=== PATIENT | female | born 1995 | race Caucasian/White ===

== ENCOUNTER 2017-11-11 13:08 | Emergency (ER) | payer BC ==
[~2017-11-11] VITALS: Ht 160 cm; Wt 74.8 kg
== END 2017-11-11 14:14 | disposition home or self-care (01) ==
LOC: ED 13:08
DX: H60.91 Unspecified otitis externa, right ear (principal)

== ENCOUNTER 2019-12-28 10:01 | Emergency (ER) | payer OTHER ==
[~2019-12-28] VITALS: Ht 160 cm; Wt 59.0 kg
[2019-12-28] MEDS ORDERED: Tobrex Ophth S2.5 ML OPH (11:40)
== END 2019-12-28 11:40 | disposition home or self-care (01) ==
LOC: ED 10:01
DX: H10.9 Unspecified conjunctivitis (principal)

== ENCOUNTER 2019-12-30 10:35 | Emergency (ER) | payer OTHER ==
[~2019-12-30] VITALS: Ht 160 cm; Wt 59.0 kg
[~2019-12-30 10:35] MED LIST: Tobrex Ophth S2.5 ML OPH
== END 2019-12-30 11:41 | disposition home or self-care (01) ==
LOC: ED 10:35
DX: H10.9 Unspecified conjunctivitis (principal); Z79.899 Other long term (current) drug therapy

== ENCOUNTER 2022-01-16 10:51 | Emergency (ER) | payer SELFPAY ==
[~2022-01-16] VITALS: Ht 160 cm; Wt 59.0 kg
[2022-01-16] MEDS ORDERED: AMOX-CLAV 875-1 EACH PO (11:11)
== END 2022-01-16 11:11 | disposition home or self-care (01) ==
LOC: ED 10:51
DX: H66.93 Otitis media, unspecified, bilateral (principal); J02.9 Acute pharyngitis, unspecified

== ENCOUNTER 2022-01-18 01:59 | Emergency (ER) | payer SELFPAY ==
[~2022-01-18] VITALS: Ht 160 cm; Wt 59.0 kg
[~2022-01-18 01:59] MED LIST changes: +AMOX-CLAV 875-1 EACH PO
== END 2022-01-18 02:31 | disposition home or self-care (01) ==
LOC: ED 01:59
DX: H60.503 Unspecified acute noninfective otitis externa, bilateral (principal)

== ENCOUNTER 2022-04-17 09:37 | Emergency (ER) | payer OTHER ==
[~2022-04-17] VITALS: Ht 160 cm; Wt 63.5 kg
[2022-04-17 10:40] LABS: BASO % 0.4 % (0.0-1.0); EOS # 0.1 10*3/uL (0.0-0.4); EOS % 1.1 % (1.0-4.0); HEMATOCRIT 35.8 % (37.0-47.0); LYMPH # 1.2 10*3/uL (1.3-4.4); LYMPH % 14.6 % (27.0-41.0); MEAN CELL VOLUME 86.1 fl (81.0-99.0); MEAN CORPUSCULAR HGB 29.6 pg (27.0-31.0); MEAN CORPUSCULAR HGB CONC 34.4 g/dl (33.0-37.0); MEAN PLATELET VOLUME 9.7 fl (9.6-12.3); MONO # 0.5 10*3/uL (0.1-1.0); MONO % 6.2 % (3.0-9.0); NEUT # 6.1 10*3/uL (2.3-7.9); NEUT % 77.4 % (47.0-73.0); PLATELET COUNT AUTOMATED 241 10*3/uL (130-400); RED BLOOD COUNT 4.16 10*6/uL (4.10-5.10); RED CELL DISTRI WIDTH 13.2 % (0-14.5); WHITE BLOOD COUNT 7.9 10*3/uL (4.8-10.8)
[2022-04-17 10:58] LABS: ALKALINE PHOSPHATASE 48 U/L (46-116); BUN 14 mg/dl (9-23); CHLORIDE 101 mmol/L (98-107); CREATININE 0.72 mg/dL (0.55-1.02); POTASSIUM 3.5 mmol/L (3.4-5.1); SGPT/ALT 14 U/L (10-49); SODIUM 132 mmol/L (136-145); TOTAL PROTEIN 7.1 gm/dL (6.0-8.0)
[2022-04-17 11:03] LABS: ETHYL ALCOHOL < 3.0 mg/dl (<3)
[2022-04-17 12:28] LABS: URINE AMPHETAMINES Negative (1000ng/ml); URINE BARBITURATES Negative (200ng/ml); URINE BENZODIAZEPINES Negative (200ng/ml); URINE CANNABINOIDS (THC) Negative (50ng/ml); URINE COCAINE Negative (300ng/ml); URINE METHADONE Negative (300ng/ml); URINE OPIATES Negative (300ng/ml); URINE PHENCYCLIDINE Negative (25ng/ml)
[2022-04-17 12:30] LABS: BILIRUBIN Negative (Negative); BLOOD Negative (Negative); CLARITY Clear (Clear); COLOR Yellow (Yellow); GLUCOSE Negative (Negative); KETONE Negative (Negative); LEUKO ESTERASE Negative (Negative); NITRITE Negative (Negative); PH 6.5 (4.5-8.0); SPECIFIC GRAVITY <= 1.005 (1.001-1.030); UROBILINOGEN 0.2 E.U./dl (0.0-1.0)
[2022-04-17 12:58] LABS: RBC 0-2 rbc/hpf (0-2); WBC 0-2 wbc/hpf (0-5)
== END 2022-04-17 13:56 | disposition home or self-care (01) ==
LOC: ED 09:37
PROVIDERS: Family Medicine
DX: R20.2 Paresthesia of skin (principal)

== ENCOUNTER 2022-11-29 16:48 | Emergency (ER) | payer OTHER ==
[~2022-11-29] VITALS: Ht 160 cm; Wt 63.5 kg
[2022-11-29] MEDS ORDERED: CEPHALEXIN500 M1 PO (17:57)
== END 2022-11-29 18:34 | disposition home or self-care (01) ==
LOC: ED 16:48
DX: S71.111A Laceration without foreign body, right thigh, initial encounter (principal); W19.XXXA Unspecified fall, initial encounter; Y93.89 Activity, other specified; Y92.89 Other specified places as the place of occurrence of the external cause; Y99.8 Other external cause status

== ENCOUNTER 2023-02-23 17:39 | Emergency (ER) | payer OTHER ==
[~2023-02-23] VITALS: Ht 160 cm; Wt 68.0 kg
[~2023-02-23 17:39] MED LIST changes: +CEPHALEXIN500 M1 PO
== END 2023-02-23 19:04 | disposition home or self-care (01) ==
LOC: ED 17:39
DX: S61.451A Open bite of right hand, initial encounter (principal); W55.01XA Bitten by cat, initial encounter; Y93.89 Activity, other specified; Y92.89 Other specified places as the place of occurrence of the external cause; Y99.8 Other external cause status

== ENCOUNTER 2023-02-26 17:37 | Emergency (ER) | payer OTHER ==
[~2023-02-26] VITALS: Wt 68.0 kg
== END 2023-02-26 18:22 | disposition home or self-care (01) ==
LOC: ED 17:37
DX: T14.8XXD Other injury of unspecified body region, subsequent encounter (principal); W54.0XXD Bitten by dog, subsequent encounter

== ENCOUNTER 2023-03-02 16:59 | Emergency (ER) | payer OTHER ==
[~2023-03-02] VITALS: Ht 160 cm; Wt 68.0 kg
== END 2023-03-02 17:43 | disposition home or self-care (01) ==
LOC: ED 16:59
DX: T14.8XXD Other injury of unspecified body region, subsequent encounter (principal); W54.0XXD Bitten by dog, subsequent encounter

== ENCOUNTER 2024-02-13 20:21 | Emergency (ER) | payer OTHER ==
[~2024-02-13] VITALS: Ht 162.5 cm; Wt 68.0 kg
[2024-02-13 21:50] LABS: BASO % 0.5 % (0.0-1.0); EOS # 0.2 10*3/uL (0.0-0.4); EOS % 3.4 % (1.0-4.0); LYMPH # 2.1 10*3/uL (1.3-4.4); LYMPH % 36.7 % (27.0-41.0); MEAN CELL VOLUME 89.8 fl (81.0-99.0); MEAN CORPUSCULAR HGB 29.4 pg (27.0-31.0); MEAN CORPUSCULAR HGB CONC 32.8 g/dl (33.0-37.0); MEAN PLATELET VOLUME 9.6 fl (9.6-12.3); MONO # 0.5 10*3/uL (0.1-1.0); MONO % 8.6 % (3.0-9.0); NEUT # 2.9 10*3/uL (2.3-7.9); NEUT % 50.6 % (47.0-73.0); PLATELET COUNT AUTOMATED 251 10*3/uL (130-400); RED BLOOD COUNT 4.01 10*6/uL (4.10-5.10); RED CELL DISTRI WIDTH 13.5 % (0-14.5); WHITE BLOOD COUNT 5.7 10*3/uL (4.8-10.8)
[2024-02-13 22:09] LABS: BUN 22 mg/dl (9-23); CHLORIDE 104 mmol/L (98-107); POTASSIUM 3.3 mmol/L (3.4-5.1)
== END 2024-02-13 22:50 | disposition home or self-care (01) ==
LOC: ED 20:21
PROVIDERS: Physician Assistant Medical
DX: F41.9 Anxiety disorder, unspecified (principal); R07.89 Other chest pain

== ENCOUNTER 2025-02-18 13:38 | Emergency (ER) | payer OTHER ==
[~2025-02-18] VITALS: Ht 162.5 cm; Wt 74.8 kg
[2025-02-18] MEDS ORDERED: SODIUM CHLORIDE 0.9% 1,000 ML IV ONE (14:00)
== END 2025-02-18 16:33 | disposition home or self-care (01) ==
LOC: ED 13:38
DX: R51.9 Headache, unspecified (principal); R42 Dizziness and giddiness; R11.2 Nausea with vomiting, unspecified